=== PATIENT | female | born 1940 | race Caucasian/White ===

== ENCOUNTER 2016-07-29 14:16 | Emergency (ER) | payer MEDICARE ==
[2016-07-29] MEDS ORDERED: LIDOCAINE 1% 10 ML VIAL INJ ONE (14:35)
[2016-07-29] MEDS ORDERED: BUPIVACAINE 0.5% 30 ML VIAL INJ ONE ×2 (14:35)
[2016-07-29 14:44] VITALS: TEMP 98.3
--- NOTE | 2016-07-29 14:49 | ED.PDOC ---
History of Present Illness - General Chief Complaint: Skin/Abrasion/Tear Stated Complaint: insect sting Time Seen by Provider: 07/29/16 14:46 Additional Information: C/O REDNESS AND DISCOLORATION TO FINGER. PLACED HER HAND ON A HANDRAIL AND FELT A STING. COULD NOT IDENTIFY WHAT STUNG HER. LESION HAS SINCE BECOME DISCOLORED AND REMAINS TENDER - History of Present Illness Timing/Duration: other - 4-5DAYS Severity: moderate Improving Factors: nothing Worsening Factors: other - HAS CONTINUED TO LOOK WORSE Associated Symptoms: denies symptoms Allergies/Adverse Reactions: Allergies NO KNOWN ALLERGY Allergy (Verified 07/29/16 14:44) Home Medications: Ambulatory Orders Cephalexin Monohydrate [Keflex] 500 mg PO TID #30 cap 07/29/16 Sulfa/Trimeth 800/160 (Ds) Tab [Bactrim DS Tab] 1 ea PO BID #14 tab 07/29/16 Review of Systems - Review of Systems Constitutional: Denies: chills, fever EENTM: Denies: blurred vision Musculoskeletal: States: other - PAIN IN FINGER Skin: States: other - REDNESS TO BITE AREA Neurological: States: no symptoms reported Endocrine: States: no symptoms reported Past Medical History (General) - Patient Medical History Hx Cardiac Disorders: Yes Hx Hypertension: Yes Surgical History: Hysterectomy - Vaccination History Hx Tetanus, Diphtheria Vaccination: No Hx Influenza Vaccination: No Hx Pneumococcal Vaccination: Yes - Social History Hx Tobacco Use: No Hx Alcohol Use: No Hx Substance Use: No Hx Substance Use Treatment: No Hx Depression: No - Activities of Daily Living Hospice Agency (if applicable):: None - Female History Patient is a Female of Child Bearing Age (10 -59 yrs old): No Patient : No Family Medical History - Family History Mother Family History: Unknown Physical Exam - Physical Exam General Appearance: No apparent distress, Well Developed, Well Nourished Eye Exam: bilateral normal Ears, Nose, Throat: hearing grossly normal, normal ENT inspection Neck: non-tender, full range of motion Back Exam: normal inspection, no CVA tenderness Extremity: other - CHANGES IN THE DIP'S OF THE HAND C/W OA. 1CM DISCOLORED AREA L INDEX FINGER JUST PROXIMAL TO DIP JT. MILD CELLULITIS ASSOCIATED WITH IT. Neurologic: alert, normal mood/affect Procedures - Incision and Drainage #1 Site: L INDEX FINGER Blade Size: 11 Procedure Comments: DIGITAL BLOCK, 1% LIDO/.5% MARCAINE, 1:1, PREPPED SUYAPA I&D WITH REMOVAL OF ROOF. SMALL ULCERATION WITH GOOD GRANULATION TISSUE AT BASE. Departure - Departure Clinical Impression: Abscess ICD-10 Supporting Text: L INDEX FINGER MIDDLE PHALANX. Time of Disposition: 15:33 Disposition: Discharge to Home or Self Care Condition: Excellent Departure Forms: ED Discharge - Pt. Copy, Patient Portal Self Enrollment Instructions: Incision and Drainage of a Skin Abscess Referrals: JHONATHAN KANG MD [Primary Care Provider] - 1-2 Weeks Prescriptions: Cephalexin Monohydrate [Keflex] 500 mg PO TID #30 cap Sulfa/Trimeth 800/160 (Ds) Tab [Bactrim DS Tab] 1 ea PO BID #14 tab Home Medications: Ambulatory Orders Cephalexin Monohydrate [Keflex] 500 mg PO TID #30 cap 07/29/16 Sulfa/Trimeth 800/160 (Ds) Tab [Bactrim DS Tab] 1 ea PO BID #14 tab 07/29/16
[2016-07-29] MEDS ORDERED: CHLORHEXIDINE GLUCONATE 4 % 15 ML UD TOP ONE (15:11)
[2016-07-29 15:47] VITALS: BP 133/91; O2SAT 95
== END 2016-07-29 15:45 | disposition home or self-care (01) ==
LOC: ER 14:16
DX: L02.512 Cutaneous abscess of left hand (principal); I10 Essential (primary) hypertension

== ENCOUNTER 2018-05-11 12:55 | Emergency (ER) | payer MEDICARE ==
[2018-05-11] MEDS ORDERED: HYDROCOD/APAP 7.5/325 (ER DISP) #3 TAB PO ONE (14:53)
--- NOTE | 2018-05-11 14:56 | ED.PDOC ---
History of Present Illness - General Chief Complaint: General Stated Complaint: pain in right hand,gout Time Seen by Provider: 05/11/18 14:53 Source: patient, family Exam Limitations: no limitations - History of Present Illness Initial Comments: Patient presents with an acute on chronic gout exacerbation. The joints involved are the right DIP and PIP joints of the 2nd finger. She has had previous episodes that have resolved with colchicine. No recent falls. No fever. No other complaints. Timing/Duration: other - 5 days Severity: moderate Improving Factors: rest Worsening Factors: movement Associated Symptoms: denies symptoms Allergies/Adverse Reactions: Allergies NO KNOWN ALLERGY Allergy (Verified 07/29/16 14:44) Home Medications: Ambulatory Orders Apixaban [Eliquis] 5 mg PO BID 05/11/18 Atenolol [Tenormin] 25 mg PO BEDTIME 05/11/18 Cholecalciferol [Vitamin D3] 5,000 unit PO DAILY 05/11/18 Colchicine 0.6 mg PO BID #3 cap 05/11/18 Diltiazem HCl 120 mg PO BID 05/11/18 HYDROcodone 5MG/APAP 325MG [[place] 5/325] 1 tab PO .Q4H PRN #20 tab 05/11/18 Pravastatin Sodium 40 mg PO BEDTIME 05/11/18 Past Medical History (General) - Patient Medical History Hx Stroke: No Hx Cardiac Disorders: Yes - Atrial fib Hx Hypertension: Yes Hx Diabetes: No Surgical History: cholecystectomy - Vaccination History Hx Tetanus, Diphtheria Vaccination: No Hx Influenza Vaccination: No Hx Pneumococcal Vaccination: Yes - Social History Hx Tobacco Use: No Hx Alcohol Use: No Hx Substance Use: No Hx Substance Use Treatment: No Hx Depression: No - Female History Patient : No Family Medical History - Family History Mother Family History: Unknown Physical Exam - Physical Exam General Appearance: Alert Respiratory: lungs clear, normal breath sounds Cardiovascular/Chest: normal peripheral pulses, regular rate, rhythm Gastrointestinal/Abdominal: normal bowel sounds, non tender, soft Extremity: other - swelling and non-blanching erythema at the right DIP and PIP joints of the second finger. TTP. Patient can flex and extend these joints but it causes much pain. She has full sensation over the entire hand and fingers. Progress - Progress Progress: 05/11/18 14:56 Patient produced labs that were done 5 days ago showing a creatinine of 1.01. She was given hydrocodone/APAP 7.5 mg/325 mg po x one in the E.D. and RX for colchicine. E.R. warnings given. Care instructions given. Questions were elicited and answered. The patient voiced understanding and agreement with the plan. Departure - Departure Clinical Impression: Gout Disposition: Discharge to Home or Self Care Condition: Good Departure Forms: ED Discharge - Pt. Copy, Patient Portal Self Enrollment Instructions: Lifestyle Changes to Manage Gout Diet: other - as per your regular doctor Activity: increase activity as tolerated Prescriptions: Colchicine 0.6 mg PO BID #3 cap HYDROcodone 5MG/APAP 325MG [[place] 5/325] 1 tab PO .Q4H PRN #20 tab PRN Reason: Pain Home Medications: Ambulatory Orders Apixaban [Eliquis] 5 mg PO BID 05/11/18 Atenolol [Tenormin] 25 mg PO BEDTIME 05/11/18 Cholecalciferol [Vitamin D3] 5,000 unit PO DAILY 05/11/18 Colchicine 0.6 mg PO BID #3 cap 05/11/18 Diltiazem HCl 120 mg PO BID 05/11/18 HYDROcodone 5MG/APAP 325MG [[place] 5/325] 1 tab PO .Q4H PRN #20 tab 05/11/18 Pravastatin Sodium 40 mg PO BEDTIME 05/11/18 Additional Instructions: Take medication as prescribed. See your regular doctor for a recheck of the finger in the next 4 -5 days. Return to the E.R. for worsening pain or fever.
[2018-05-11] MEDS ORDERED: HYDROcodone 7.5MG/APAP 325MG 1 EA TAB PO ONE (15:19)
[2018-05-11 15:47] VITALS: BP 147/85; TEMP 97.9; O2SAT 96
== END 2018-05-11 15:47 | disposition home or self-care (01) ==
LOC: ER 12:55
DX: M10.9 Gout, unspecified (principal); I48.91 Unspecified atrial fibrillation; I10 Essential (primary) hypertension; Z79.899 Other long term (current) drug therapy